=== PATIENT | male | born 1975 | race Caucasian/White ===

== ENCOUNTER 2018-09-16 21:58 | Emergency (ER) | payer SELFPAY ==
[2018-09-16] MEDS ORDERED: DIPHTH/TET/ACEL PERTUSS (ADULT) 0.5 ML VIAL IM* (22:30)
[2018-09-16] MEDS: HYDROCODONE/APAP (10/325) TAB PO (22:35)
[2018-09-17] MEDS: AMOXICILLIN/CLAV 875 MG TAB PO (00:05)
== END 2018-09-17 00:51 | disposition home or self-care (01) ==
LOC: FTE 09-17 00:51
DX: S61.252A Open bite of right middle finger without damage to nail, initial encounter (principal); S60.221A Contusion of right hand, initial encounter; W54.0XXA Bitten by dog, initial encounter; Y92.89 Other specified places as the place of occurrence of the external cause
CPT/HCPCS: 29125; 73130-RT; 99283-25